=== PATIENT | female | born 1965 | race Two or more races ===

== ENCOUNTER 2018-03-17 02:30 | Emergency (ER) | payer OTHER ==
[2018-03-17] MEDS ORDERED: Alum Hydroxide/Mag Hydroxide 10 ML, Lidocaine 2% 10 ML, Promethazine 12.5 MG PO ONE ×3 (02:52)
[2018-03-17] MEDS ORDERED: Aspirin 81 MG Tab.Chew PO ONE (02:53)
[2018-03-17] MEDS ORDERED: GI Cocktail Oral Solution 30 ML PO ONE (02:56)
--- NOTE | 2018-03-17 02:59 | EDM.PDOC ---
ED HPI GENERAL MEDICAL PROBLEM - General Chief Complaint: Chest Pain Stated Complaint: Chest pain, vomiting x2 Time Seen by Provider: 03/17/18 02:38 Source of Information: Reports: Patient History Limitations: Reports: No Limitations - History of Present Illness INITIAL COMMENTS - FREE TEXT/NARRATIVE: Pt comes in the ER with complaint of mid sternal chest discomfort. The pain started approximately midnight or 3 hours ago. She states that she had a sudden onset of discomfort in the midsternal section. She states that she was having difficulty taking a deep breath she denies any nausea vomiting or shortness of breath. She does state that she could not get comfortable was a burning sensation in the middle of her sternum with radiation straight to the back and to the right shoulder. She had vomiting twice after the vomiting subsided and she felt better instantly. She still ended up having her spouse bring her in just to be evaluated in the emergency department. For they did take her blood pressure blood pressure was extremely elevated and Her. Patient has had a long- standing history of hypertension and does check her blood pressure normal basis. She denies having these types of feelings before. She also denies any gastric reflux disease. Patient does state that the pain was reproducible she took a deep breath or discomfort would hurt worse. She pressed on her lower sternum area of the pain would also intensify. Currently the patient having slight tenderness over the esophageal/gastric region lower midsternal region. Onset: Sudden eipigastric, lower mid sternal Pain Score (Numeric/FACES): 3 - Related Data Allergies Allergy/AdvReac Type Severity Reaction Status Date / Time meloxicam Allergy Hives Verified 03/17/18 03:27 Home Meds: Home Meds Hydrochlorothiazide 12.5 mg PO DAILY 03/17/18 [History] Lisinopril 10 mg PO DAILY 03/17/18 [History] Metoprolol Tartrate 25 mg PO DAILY 03/17/18 [History] sulfaSALAzine 500 mg PO BID 03/17/18 [History] ED ROS GENERAL - Review of Systems Review Of Systems: See Below Constitutional: Reports: No Symptoms HEENT: Reports: No Symptoms Respiratory: Reports: No Symptoms Cardiovascular: Reports: Chest Pain Endocrine: Reports: No Symptoms GI/Abdominal: Reports: Nausea, Vomiting (2 times) : Reports: No Symptoms Musculoskeletal: Reports: No Symptoms Skin: Reports: No Symptoms Neurological: Reports: No Symptoms ED EXAM, GENERAL - Physical Exam Exam: See Below Exam Limited By: No Limitations General Appearance: Alert, WD/WN, No Apparent Distress Respiratory/Chest: No Respiratory Distress, Lungs Clear, Normal Breath Sounds, No Accessory Muscle Use, Chest Non-Tender Cardiovascular: Normal Peripheral Pulses, Regular Rate, Rhythm, No Edema, No Gallop, No JVD, No Murmur, No Rub GI/Abdominal: Normal Bowel Sounds, Soft, Non-Tender, No Organomegaly, No Distention, No Abnormal Bruit Extremities: Normal Inspection, Normal Range of Motion, Normal Capillary Refill Neurological: Alert, Oriented, Normal Cognition, Normal Gait Psychiatric: Normal Affect, Normal Mood Skin Exam: Warm, Dry, Intact, Normal Color, No Rash EKG INTERPRETATION EKG Date: 03/17/18 Time: 02:34 (second: 03:48) Rhythm: NSR Rate (Beats/Min): 53 [place]: Normal P-Wave: Present QRS: Normal ST-T: Normal QT: Normal Course - Vital Signs Last Recorded V/S: Last Vital Signs Temp 36.1 C 03/17/18 02:30 Pulse 52 L 03/17/18 02:30 Resp 16 03/17/18 02:30 BP 156/74 H 03/17/18 02:30 Pulse Ox 98 03/17/18 02:30 - Orders/Labs/Meds Orders: Active Orders 24 hr Category Date Time Status EKG Documentation Completion [RC] STAT Care 03/17/18 02:52 Active Labs: Laboratory Tests 03/17/18 03/17/18 03/17/18 Range/Units 03:07 03:07 03:25 WBC 6.1 (4.0-10.0) x10^3/uL RBC 3.81 L (4.00-5.50) x10^6/uL Hgb 11.7 L (12.0-16.0) g/dL Hct 35.8 (33.0-47.0) % MCV 94.0 H (78.0-93.0) fL MCH 30.7 (26.0-32.0) pg MCHC 32.7 (32.0-36.0) g/dL RDW Coeff of Kelly 13.5 (10.0-15.0) % Plt Count 210 (130-400) x10^3/uL Neut % (Auto) 52.7 (50.0-80.0) % Lymph % (Auto) 36.7 (25.0-50.0) % [place] % (Auto) 8.9 (2.0-11.0) % Eos % (Auto) 1.5 (0.0-4.0) % Baso % (Auto) 0.2 (0.2-1.2) % Sodium 141 (136-145) mmol/L Potassium 4.1 (3.5-5.1) mmol/L Chloride 107 (98-107) mmol/L Carbon Dioxide 25 (21-32) mmol/L Anion Gap 13.1 (10-20) mmol/L BUN 24 H (7-18) mg/dL Creatinine 0.9 (0.55-1.02) mg/dL Est Cr Clr Drug Dosing 64.58 mL/min Estimated GFR (MDRD) > 60 Glucose 91 (74-106) mg/dL Calcium 8.6 (8.5-10.1) mg/dL Corrected Calcium 8.92 (8.5-10.1) mg/dL Total Bilirubin 0.4 (0.2-1.0) mg/dL AST 27 (15-37) U/L ALT 40 (14-59) U/L Alkaline Phosphatase 61 (46-116) U/L Creatine Kinase 112 (26-192) U/L POC Troponin I 0.00 (0.00-0.08) ng/mL Total Protein 6.9 (6.4-8.2) g/dL Albumin 3.6 (3.4-5.0) g/dL Globulin 3.3 Albumin/Globulin Ratio 1.09 Meds: Medications Discontinued Medications Generic Name Dose Route Start Last Admin Trade Name Freq PRN Reason Stop Dose Admin Al Hydroxide/Mg Hydroxide 30 ml 03/17/18 02:56 03/17/18 03:00 Gi Cocktail PO 03/17/18 02:57 30 ml ONETIME ONE Administration Aspirin 324 mg 03/17/18 02:53 03/17/18 02:55 Aspirin PO 03/17/18 02:54 324 mg ONETIME ONE Administration Al Hydroxide/Mg Hydroxide 10 0 ml 03/17/18 02:52 ml/ Lidocaine HCl 10 ml/ PO 03/17/18 02:53 Promethazine HCl 12.5 mg ONETIME ONE - Re-Assessments/Exams Free Text/Narrative Re-Assessment/Exam: 03/17/18 03:48 Pain in the same region has returned. 03/17/18 04:32 Pain resolved, negative assessment, No pain, Vital signs within pt's normal. Departure - Departure Time of Disposition: 04:20 Disposition: Home, Self-Care 01 Condition: Good Clinical Impression: Gastroesophageal reflux disease Qualifiers: Esophagitis presence: esophagitis presence not specified Qualified Code(s): K21.9 - Gastro-esophageal reflux disease without esophagitis Chest pain Qualifiers: Chest pain type: unspecified Qualified Code(s): R07.9 - Chest pain, unspecified Instructions: Indigestion, [id number], Nonspecific Chest Pain, [id number] Forms: ED Department Discharge Additional Instructions: 1. It is advised that at minimal another set of cardiac labs should be done to rule out cardiac ischemia. You are assuming the risk including but not limited to permanent cardiac damage, increased risk of stroke, increased risk of organ damage, and even sudden . 2. If the symptoms arise again you are advised to return immediately 3. Close follow up is encouraged Follow up on Sunday in the clinic 4. Rest 5. Can take over the counter tums for reflux and a proton pump inhibitor (zantac ) daily 6. Reduce spicy food intake and caffeine - My Orders Last 24 Hours: My Active Orders 03/17/18 02:52 EKG Documentation Completion [RC] STAT - Assessment/Plan Last 24 Hours: My Active Orders 03/17/18 02:52 EKG Documentation Completion [RC] STAT Assessment:: 1.gastroesophageal pain Plan: 1. EKG completed in the ER and reviewed with the patient 2. Labs completed in the ER reviewed with the patient 3. GI cocktail given in the ER for earlier symptoms of gastroesophageal pain/ reflux. 4. Pain was gone however did return. A second EKG was completed with no changes 5. Mylanta was given with relief. 6. Patient was encouraged to be admitted for observation at least run one more set of cardiac enzymes a minimum. Patient refusing to be hospitalized. She states they're camping. This did discuss in great detail the risks and benefits regarding at least getting one more set of cardiac enzymes. Patient is not willing to do that she feels that this is gastric reflux. Patient is willing to sign an AMA form and leaving AGAINST MEDICAL ADVICE. Patient understands and signed the form without difficulty. Patient states that she will return if the symptoms present again. Did discuss the risk of this and the likelihood and statistics of patient's not making it to the hospital and a sudden cardiac . Patient's understands this and wishes to leave with her spouse. Spouse is present at the door and agrees to bring her back if needed.
[2018-03-17 03:38] LABS: CHLORIDE,CL 107 mmol/L (98-107); SODIUM,NA 141 mmol/L (136-145)
[2018-03-17] MEDS ORDERED: Pantoprazole 40 MG Tab.CR PO ONE (03:49)
[2018-03-17] MEDS ORDERED: Aluminum Hydroxide/Magnesium Hydroxide/Simethicone Susp 30 ML Cup PO ONE (03:52)
== END 2018-03-17 04:32 | disposition home or self-care (01) ==
LOC: VM.ED 02:30
DX: K21.9 Gastro-esophageal reflux disease without esophagitis (principal); Z88.8 Allergy status to other drugs, medicaments and biological substances; Z79.899 Other long term (current) drug therapy
CPT/HCPCS: 36415; 80053; 82550; 84484; 85025; 93005; 99285; A9270-GY